=== PATIENT | female | born 1965 | race Caucasian/White ===

== ENCOUNTER → 2018-02-10 | Outpatient (CLI) | payer OTHER | END | disposition home or self-care (01) | LOC: VAS 13:26 | DX: I82.4Z2 Acute embolism and thrombosis of unspecified deep veins of left distal lower extremity (principal) | CPT/HCPCS: 93971 ==

== ENCOUNTER 2019-02-28 12:06 | Inpatient (IN) | payer MEDICAID, OTHER ==
[2019-02-28 13:26] LABS: ADD MAN DIFF? NO
[2019-02-28 13:29] LABS: WHITE BLOOD COUNT 3.3 10^3/ul (4.8-10.8)
[2019-02-28 13:29] LABS: ABNORMAL IP MESSAGE 1; BASOPHILS % 0.9 % (0.0-2.0); EOSINOPHILS % 0.3 % (0.0-7.0); HEMATOCRIT 33.2 % (37.0-47.0); HEMOGLOBIN 10.6 g/dl (12.0-16.0); LYMPHOCYTES # 0.5 10^3/ul (0.8-2.9); LYMPHOCYTES % 16.2 % (15.0-51.0); MEAN CORPUSCULAR HEMOGLOBIN 33.5 pg (29.0-33.0); MEAN CORPUSCULAR HGB CONC 31.9 g/dl (32.0-37.0); MEAN CORPUSCULAR VOLUME 105.1 fl (82.0-101.0); MEAN PLATELET VOLUME 11.1 fl (7.4-10.4); MONOCYTE # 0.4 10^3/ul (0.3-0.9); MONOCYTES % 10.8 % (0.0-11.0); NEUTROPHIL # 2.4 10^3/ul (1.6-7.5); NEUTROPHILS % 71.5 % (39.0-77.0); PLATELET COUNT 113 10^3/UL (140-415); RED BLOOD COUNT 3.16 10^6/ul (4.20-5.40); RED CELL DISTRIBUTION WIDTH 15.9 % (11.5-14.5)
[2019-02-28 13:30] LABS: POSITIVE DIFF @See below
[2019-02-28 13:51] LABS: ALANINE AMINOTRANSFERASE 31 IU/L (13-69); ALBUMIN 2.8 g/dl (3.3-4.9); ALBUMIN/GLOBULIN RATIO 0.59; ALKALINE PHOSPHATASE 361 IU/L (42-121); ANION GAP 6 (5-13); ASPARTATE AMINO TRANSFERASE 46 IU/L (15-46); BILIRUBIN,INDIRECT 2.8 mg/dl (0-1.1); BILIRUBIN,TOTAL 2.8 mg/dl (0.2-1.3); BLOOD UREA NITROGEN 19 mg/dl (7-20); CALCIUM 8.1 mg/dl (8.4-10.2); CARBON DIOXIDE 26 mmol/L (21-31); CHLORIDE 104 mmol/L (97-110); CREATININE 0.51 mg/dl (0.44-1.00); Estimated GFR > 60 mL/min (>60); GLUCOSE 88 mg/dl (70-220); LIPASE 119 U/L (23-300); POTASSIUM 4.4 mmol/L (3.5-5.1); SODIUM 136 mmol/L (135-144); TOTAL PROTEIN 7.5 g/dl (6.1-8.1)
[2019-02-28 13:52] LABS: INR 1.21; PROTIME 15.4 Sec (11.9-14.9); PT RATIO 1.2
[2019-02-28 13:53] LABS: PARTIAL THROMBOPLASTIN TIME 30.2 Sec (23.0-35.0)
[2019-02-28 14:03] LABS: B-TYPE NATRIURETIC PEPTIDE 65 PG/ML (0-125); TROPONIN-I < 0.012 ng/ml (0.000-0.120)
[2019-02-28] MEDS: LIDOCAINE 1% (MPF) 5 ML VIAL (18:00)
[2019-02-28] MEDS ORDERED: ONDANSETRON 4 MG INJ IV (20:00)
[2019-02-28] MEDS ORDERED: HYDROCODONE/APAP (5/325) TAB PO (20:00)
[2019-02-28] MEDS ORDERED: ZOLPIDEM 5 MG TAB PO (20:00)
[2019-02-28] MEDS ORDERED: NACL 0.9% 3 ML SYG IV (20:00)
[2019-02-28] MEDS ORDERED: morphine 2 MG INJ IV (20:00)
[2019-02-28] MEDS ORDERED: DOCUSATE SODIUM 100 MG CAP PO (20:00)
[2019-02-28] MEDS: ALBUMIN HUMAN 25% 100 ML IV (21:25)
[2019-03-01] MEDS ORDERED: PENDING SANTYL ORDER FOR WOUND CARE XX (01:30)
[2019-03-01 05:57] LABS: ADD MAN DIFF? NO
[2019-03-01 05:59] LABS: ABNORMAL IP MESSAGE 1; BASOPHILS % 0.4 % (0.0-2.0); EOSINOPHILS % 1.2 % (0.0-7.0); HEMATOCRIT 25.3 % (37.0-47.0); HEMOGLOBIN 7.9 g/dl (12.0-16.0); LYMPHOCYTES # 0.5 10^3/ul (0.8-2.9); LYMPHOCYTES % 18.7 % (15.0-51.0); MEAN CORPUSCULAR HEMOGLOBIN 33.1 pg (29.0-33.0); MEAN CORPUSCULAR HGB CONC 31.2 g/dl (32.0-37.0); MEAN CORPUSCULAR VOLUME 105.9 fl (82.0-101.0); MEAN PLATELET VOLUME 10.5 fl (7.4-10.4); MONOCYTE # 0.4 10^3/ul (0.3-0.9); MONOCYTES % 14.3 % (0.0-11.0); NEUTROPHIL # 1.6 10^3/ul (1.6-7.5); PLATELET COUNT 91 10^3/UL (140-415); RED BLOOD COUNT 2.39 10^6/ul (4.20-5.40); RED CELL DISTRIBUTION WIDTH 15.9 % (11.5-14.5)
[2019-03-01 05:59] LABS: WHITE BLOOD COUNT 2.5 10^3/ul (4.8-10.8)
[2019-03-01 06:09] LABS: POSITIVE DIFF @See below
[2019-03-01] MEDS: PANTOPRAZOLE (EC) 40 MG TAB PO (06:13)
[2019-03-01 06:49] LABS: ALANINE AMINOTRANSFERASE 25 IU/L (13-69); ALBUMIN 2.3 g/dl (3.3-4.9); ALBUMIN/GLOBULIN RATIO 0.67; ALKALINE PHOSPHATASE 250 IU/L (42-121); ANION GAP 5 (5-13); ASPARTATE AMINO TRANSFERASE 32 IU/L (15-46); BLOOD UREA NITROGEN 20 mg/dl (7-20); CALCIUM 7.6 mg/dl (8.4-10.2); CARBON DIOXIDE 26 mmol/L (21-31); CHLORIDE 107 mmol/L (97-110); Estimated GFR > 60 mL/min (>60); GLUCOSE 96 mg/dl (70-220); POTASSIUM 4.1 mmol/L (3.5-5.1); SODIUM 138 mmol/L (135-144); TOTAL PROTEIN 5.7 g/dl (6.1-8.1)
[2019-03-01] MEDS: APIXABAN 5 MG TABLET PO ×2 (12:24→20:46)
[2019-03-01] MEDS: ALBUMIN HUMAN 25% 100 ML IV (12:36)
[2019-03-01] MEDS: BALSAM PERU/CASTOR OIL 60 GM TUBE TOP (20:47)
[2019-03-01 21:05] LABS: LACTATE DEHYDROGENASE 424 IU/L (313-618)
[2019-03-02] MEDS: PANTOPRAZOLE (EC) 40 MG TAB PO (05:34)
[2019-03-02 07:57] LABS: ADD MAN DIFF? NO
[2019-03-02 07:59] LABS: WHITE BLOOD COUNT 2.9 10^3/ul (4.8-10.8)
[2019-03-02 07:59] LABS: ABNORMAL IP MESSAGE 1; EOSINOPHILS # 0.1 10^3/ul (0.0-0.5); EOSINOPHILS % 2.1 % (0.0-7.0); HEMATOCRIT 25.5 % (37.0-47.0); HEMOGLOBIN 7.9 g/dl (12.0-16.0); LYMPHOCYTES # 0.5 10^3/ul (0.8-2.9); LYMPHOCYTES % 16.2 % (15.0-51.0); MEAN CORPUSCULAR HEMOGLOBIN 32.9 pg (29.0-33.0); MEAN CORPUSCULAR VOLUME 106.3 fl (82.0-101.0); MEAN PLATELET VOLUME 10.9 fl (7.4-10.4); MONOCYTE # 0.5 10^3/ul (0.3-0.9); MONOCYTES % 15.9 % (0.0-11.0); NEUTROPHIL # 1.9 10^3/ul (1.6-7.5); NEUTROPHILS % 64.5 % (39.0-77.0); PLATELET COUNT 89 10^3/UL (140-415); RED CELL DISTRIBUTION WIDTH 15.9 % (11.5-14.5)
[2019-03-02 08:02] LABS: POSITIVE DIFF @See below
[2019-03-02 08:35] LABS: ANION GAP 3 (5-13); BLOOD UREA NITROGEN 19 mg/dl (7-20); CALCIUM 7.8 mg/dl (8.4-10.2); CARBON DIOXIDE 26 mmol/L (21-31); CHLORIDE 107 mmol/L (97-110); CREATININE 0.48 mg/dl (0.44-1.00); Estimated GFR > 60 mL/min (>60); GLUCOSE 89 mg/dl (70-220); POTASSIUM 3.6 mmol/L (3.5-5.1); SODIUM 136 mmol/L (135-144)
[2019-03-02] MEDS: BALSAM PERU/CASTOR OIL 60 GM TUBE TOP (09:00)
[2019-03-02] MEDS: APIXABAN 5 MG TABLET PO (09:49)
[2019-03-02] MEDS: CALCIUM/VITAMIN D (500/200) TAB PO (13:42)
[2019-03-02] MEDS: HEPARIN (100 UNITS/ML) 5 ML SYG CATHETER (17:07)
[2019-03-03 14:21] LABS: HAPTOGLOBIN 123 mg/dL (43-212)
== END 2019-03-02 17:50 | disposition home or self-care (01) | DRG 435 ==
LOC: E/R 12:06 → PP2 18:47
PROC: 0W9G3ZZ Drainage of Peritoneal Cavity, Percutaneous Approach (ICD-10-PCS; principal; 2019-02-28)
DX: C78.7 Secondary malignant neoplasm of liver and intrahepatic bile duct (principal); D61.810 Antineoplastic chemotherapy induced pancytopenia; C79.51 Secondary malignant neoplasm of bone; R64 Cachexia; R18.0 Malignant ascites; C50.919 Malignant neoplasm of unspecified site of unspecified female breast; K72.90 Hepatic failure, unspecified without coma; N95.9 Unspecified menopausal and perimenopausal disorder; Z68.21 Body mass index [BMI] 21.0-21.9, adult; Z17.0 Estrogen receptor positive status [ER+]; Z86.718 Personal history of other venous thrombosis and embolism; Z79.02 Long term (current) use of antithrombotics/antiplatelets
CPT/HCPCS: 80048; 80053; 82248; 83010; 83615; 83690; 83735; 83880; 84443; 84484; 85025; 85610; 85730; 86850; 86900; 86901; 93005; 99285-25; G0378

== ENCOUNTER 2019-03-09 10:03 | Day surgery (SDC) | payer MEDICAID ==
[2019-03-09] MEDS ORDERED: FENTAnyl 50 MCG/ML VIAL (12:16)
[2019-03-09] MEDS ORDERED: MIDAZOLAM 1 MG/ML 2 ML INJ (12:16)
[2019-03-09] MEDS ORDERED: LIDOCAINE 1% (MDV) 20 ML INJ (12:16)
[2019-03-09] MEDS ORDERED: SOD CHLORIDE 0.9% 500 ML (13:28)
== END 2019-03-09 14:55 | disposition home or self-care (01) ==
LOC: SDS 10:03
DX: R18.0 Malignant ascites (principal); C50.919 Malignant neoplasm of unspecified site of unspecified female breast; C78.7 Secondary malignant neoplasm of liver and intrahepatic bile duct; C79.51 Secondary malignant neoplasm of bone; R18.8 Other ascites; K72.90 Hepatic failure, unspecified without coma; D61.818 Other pancytopenia
CPT/HCPCS: 49418; 76942; 84702

== ENCOUNTER 2019-03-11 23:50 | Emergency (ER) | payer MEDICAID, OTHER | END 2019-03-12 02:19 | disposition home or self-care (01) | LOC: E/R 03-12 02:19 | DX: Z00.01 Encounter for general adult medical examination with abnormal findings (principal); R18.0 Malignant ascites; Y84.4 Aspiration of fluid as the cause of abnormal reaction of the patient, or of later complication, without mention of misadventure at the time of the procedure; Z79.01 Long term (current) use of anticoagulants | CPT/HCPCS: 99282; Z7502 ==